=== PATIENT | male | born 1955 | race Caucasian/White ===

== ENCOUNTER 2020-09-11 11:05 | Observation (INO) | payer BC, MEDICARE ==
[~2020-09-11] VITALS: Ht 190.5 cm; Wt 88.6 kg
[2020-09-11 11:28] LABS: BASO % 0.4 % (0.0-2.0); EOS # 0.2 (0.0-0.7); EOS % 2.2 % (0-4.0); GRAN # 3.9 (1.4-6.5); GRAN % 49.9 % (42.2-75.2); HEMATOCRIT 41.3 % (42.0-52.0); HEMOGLOBIN 13.6 g/dl (13.5-18.0); LYMPH # 3.2 (1.2-3.4); LYMPH % 41.2 % (20.0-51.0); MEAN CELL VOLUME 97 fl (80.0-100.0); MEAN CORPUSCULAR HEMOGLOBIN 32 pg (27.0-31.0); MEAN CORPUSCULAR HGB CONC 33 g/dl (33.0-37.0); MEAN PLATELET VOLUME 9.8 fl (7.4-10.4); MONO # 0.5 (0.1-0.6); PLATELET COUNT 247 K/mm3 (130-400); RED BLOOD COUNT 4.28 M/mm3 (4.20-5.60); REDCELL DISTRIBUTION WIDTH-CV 13.1 % (11.5-14.5)
[2020-09-11 12:15] LABS: ALANINE AMINOTRANSFERASE 21 U/L (4-49); ALBUMIN 3.7 gm/dL (3.5-5.0); ALKALINE PHOSPHATASE 66 U/L (50-136); ANION GAP 7 mmol/L (7-16); AST,SGOT 27 U/L (15-37); BILIRUBIN,TOTAL 0.3 mg/dL (0.0-1.0); BLOOD UREA NITROGEN 22 mg/dL (9-20); CALCIUM 8.9 mg/dL (8.4-10.2); CARBON DIOXIDE 24 mmol/L (22-30); CHLORIDE 106 mmol/L (98-107); CREATININE, serum 1.01 (0.66-1.25); GLUCOSE 172 mg/dL (74-106); POTASSIUM 3.9 mmol/L (3.4-5.0); SODIUM 137 mmol/L (137-145); TOTAL PROTEIN 6.3 gm/dL (6.4-8.2)
[2020-09-11 12:21] LABS: C-REACTIVE PROTEIN < 0.5 mg/dL (0.0-0.9)
[2020-09-11 12:24] LABS: TROPONIN-I < 0.012 ng/mL (0.000-0.035)
[2020-09-11 13:04] LABS: COLLECTION METHOD CLEAN CATCH
[2020-09-11 13:16] LABS: MUCOUS Present /lpf; PH 6 (5-8); SQUAMOUS EPITHELIAL 0-2 /hpf; URINE APPEARANCE Clear; URINE BACTERIA None Seen /hpf; URINE BILIRUBIN Negative (NEGATIVE); URINE BLOOD Negative (NEGATIVE); URINE COLOR Yellow; URINE GLUCOSE Negative (NEGATIVE); URINE KETONE Trace (NEGATIVE); URINE LEUKOCYTE ESTERASE Negative (NEGATIVE); URINE NITRATE Negative (NEGATIVE); URINE PROTEIN(semi-quant) Negative (NEGATIVE); URINE RBC 0-2 /hpf; URINE UROBILINOGEN Negative (NEGATIVE)
[2020-09-11 16:06] VITALS: BP 132/66; PULSE 52; TEMP 98
--- NOTE | 2020-09-11 16:30 | NUR ---
Pt arrived to medical unit room 319 at 1600 by stretcher from ED. at bedside. Oriented pt to room. Admission assessment and med rec completed. Denies nausea or dizziness at this time. Heart rhythm regular, rate in 50s. Denies pain. Call light in reach. Continuing to monitor.
[2020-09-11 19:49] VITALS: BP 158/67; PULSE 65; TEMP 98.2
--- NOTE | 2020-09-11 22:02 | NUR ---
Shift assessment completed. Patient A/O x4. Patient denies chest pain, SOB, headache, dizziness, or N/V. Patient states feeling much better since he came to medical floor. Patient walks to the bathroom independently. No c/o dizziness or weakness. Call light within reach. Patient denies any needs at this time.
--- NOTE | 2020-09-11 22:25 | NUR ---
Called by Telemetry regarding pt's heart rate ranging around 45 at 22:20 pm. Patient sleeping in bed comfortably. No acute distress noted. Called LUCY Jean-Baptiste and updated HR of 45. Per LUCY Jean-Baptiste, we will keep an eye for HR tonight and she will change parameter to 40. Will continue to monitor for any changes.
[2020-09-11 23:18] VITALS: BP 128/63; PULSE 50; TEMP 98.3
[2020-09-12 03:47] VITALS: BP 137/71; PULSE 58; TEMP 97.9
--- NOTE | 2020-09-12 04:20 | NUR ---
Received phone call from Tele regarding pt's HR 39. Checked on patient immediately. Patient sleeping in bed. Patient awake easily with calling his name. Alert and oriented. Denies any chest discomfort. HR goes up to 55-60 immediately upon awake. Called LUCY Jean-Baptiste and updated pt's status. Per LUCY Jean-Baptiste will continue to monitor HR on Tele. Call light within reach. Patient denies any needs.
[2020-09-12 07:22] VITALS: BP 122/57; PULSE 50; TEMP 97.7
[2020-09-12 07:51] LABS: CHOLESTEROL RISK RATIO 4.5
--- NOTE | 2020-09-12 09:00 | NUR ---
Assessment completed, alert/oriented, vital signs stable, patient denies any pains or discomfort, denies any further episodes of dizziness/weakness/syncompe, denies any N/V and tolerting PO intake well, heart regular/ slightly bradycardic on tele and I have notified hospitalist, he has gone down to radiology for brain MRI and neck CTA
--- NOTE | 2020-09-12 09:37 | NUR ---
KYLIE met with the patient and his , Nessa (ph#[phone]), to discuss discharge plan. The patient lives in [place] with his . He reports independence with ADLs and does not have any DME. The patient states that his provider is a PA under Dr. Espinoza in [place]. The patient has seen the PA once and could not recall their name. He receives his medications from [facility] in [place]. The patient does not have a DPOA-HC in EMR, but he states that he does have one completed and that it designates his . The patient plans to return home with his upon discharge. No additional needs at this time.
--- NOTE | 2020-09-12 10:23 | NUR ---
Initial visit with patient's ; Patient out for Procedure. Certified Dental Assistant offered good thoughts and God's blessings for their family.
[2020-09-12] MEDS ORDERED: ASPIRIN 81M81 MG/TA2 PO (11:28)
--- NOTE | 2020-09-12 12:21 | NUR ---
Discharge orders discussed with the patient and his , instructed to follow up with PCP in 1 week, IV and tele removed, instructed to take 81mg ASA daily for now, ambulatory and I escorted them out the door
== END 2020-09-12 12:32 | disposition home or self-care (01) ==
LOC: COL.ER 11:05 → MEDICAL 14:12
PROVIDERS: Nurse Practitioner; ADMIT Family Medicine
DX: R42 Dizziness and giddiness (principal); R11.2 Nausea with vomiting, unspecified; F17.220 Nicotine dependence, chewing tobacco, uncomplicated
CPT/HCPCS: A9585; G0378; J1650; J2405; J7030; Q9967